=== PATIENT | male | born 1975 | race Two or more races ===

== ENCOUNTER 2021-10-20 17:04 | Emergency (ER) | payer MEDICAID, OTHER ==
[~2021-10-20] VITALS: Ht 185.4 cm; Wt 72.6 kg
[2021-10-20] MEDS ORDERED: cefTRIAXone 1GM/50ML D5W 50 ML IV ONE ×2 (17:27→17:30)
[2021-10-20] MEDS ORDERED: KETOROLAC TROMETH 30 MG/ML 1ML VIAL IV ONE (17:30)
[2021-10-20] MEDS ORDERED: CLINDAMYCIN 600MG IV 50 ML IV ONE (17:30)
[2021-10-20 18:00] VITALS: BP 126/74
== END 2021-10-20 18:05 | disposition home or self-care (01) ==
LOC: ER 17:04
DX: S00.561A Insect bite (nonvenomous) of lip, initial encounter (principal)
CPT/HCPCS: 96365; 96368; 96375; 99284; J0696; J1885; J3490

== ENCOUNTER 2021-10-23 11:28 | Emergency (ER) | payer MEDICAID ==
[~2021-10-23] VITALS: Ht 182.9 cm; Wt 76.2 kg
[2021-10-23 12:04] VITALS: BP 110/75
== END 2021-10-23 19:08 | disposition left against medical advice (07) ==
LOC: ER 11:28
DX: L02.01 Cutaneous abscess of face (principal); F12.10 Cannabis abuse, uncomplicated